=== PATIENT | male | born 1945 ===

== ENCOUNTER 2016-08-11 13:24 | Emergency (ER) | payer MEDICARE, OTHER ==
--- NOTE | 2016-08-11 14:16 | EDM.PDOC ---
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 It flipped in the boat and caught his left lower leg and ripped the hook through the skin. Patient is here for the laceration and sutures. Patient has had a tetanus in 2010. Denies other complaints or concerns. Onset: Sudden Duration: Hour(s): Location: Reports: Lower Extremity, Left Severity: Mild Improves with: Reports: None Worsens with: Reports: None - Related Data Allergies Allergy/AdvReac Type Severity Reaction Status Date / Time Sulfa (Sulfonamide Allergy Cannot Verified 08/11/16 13:40 Antibiotics) Remember Home Meds: Home Meds Cephalexin 500 mg PO QID 08/11/16 [History] ED ROS GENERAL - Review of Systems Review Of Systems: ROS reveals no pertinent complaints other than HPI. ED EXAM, SKIN/RASH Exam: See Below Exam Limited By: No Limitations General Appearance: Alert, WD/WN, No Apparent Distress Eye Exam: Bilateral Eye: EOMI Ears: Normal External Exam Nose: Normal Inspection Throat/Mouth: Normal Inspection Head: Atraumatic, Normocephalic Neck: Normal Inspection Respiratory/Chest: No Respiratory Distress, Lungs Clear Cardiovascular: Normal Peripheral Pulses, Regular Rate, Rhythm Peripheral Pulses: 2+: Dorsalis Pedis (L), Dorsalis Pedis (R) GI/Abdominal: Normal Bowel Sounds Neurological: Alert, Oriented Skin: Other (3.5cm jagged laceration of the left posterior calf area) ED SKIN PROCEDURES - Laceration/Wound Repair Left Lower Posterior Medial Leg Lac/Wound length In cm: 3.5 Appearance: Subcutaneous Distal NVT: Neuro & Vascular Intact, No Tendon Injury Anesthetic Type: Local Local Anesthesia - Lidocaine (Xylocaine): 1% Plain Local Anesthetic Volume: 5cc Skin Prep: Providone-Iodine (Betadine), Sterile Drape Exploration/Debridement/Repair: Wound Explored, Minimal Debridement, Wound Margins Revised Closed with: Sutures Suture Size: 4-0 # of Sutures: 6 Suture Type: Nylon, Interrupted, Simple Drain Placement: No Sterile Dressing Applied: Nurse Tetanus Status Addressed: Yes Complications: No Departure - Departure Time of Disposition: 14:16 Disposition: Home, Self-Care 01 Condition: Good Clinical Impression: Laceration - Discharge Information Instructions: Laceration Care, Adult Referrals: PCP,None [Primary Care Provider] - Forms: ED Department Discharge Care Plan Goals: KEEP AREA CLEAN AND DRY. RETURN TO PRIMARY CARE PHYSICIAN FOR SUTURE REMOVAL IN 7 TO 10 DAYS. CAN TAKE ADVIL FOR PAIN
[2016-08-11 14:39] VITALS: BP 136/70
== END 2016-08-11 14:15 | disposition home or self-care (01) ==
LOC: LB.ED 13:24
DX: S81.812A Laceration without foreign body, left lower leg, initial encounter (principal); Z88.2 Allergy status to sulfonamides; W45.8XXA Other foreign body or object entering through skin, initial encounter
CPT/HCPCS: 12002; 99282; 99283-25